=== PATIENT | male | born 1995 | race Caucasian/White ===

== ENCOUNTER 2018-12-13 20:58 | Emergency (ER) | payer MEDICAID ==
[~2018-12-13] VITALS: Wt 52.7 kg
[2018-12-13 21:13] VITALS: BP 154/67; PULSE 90; RESP 20
[2018-12-13] MEDS ORDERED: CLINDAMYCIN 300 MG INJ IM ONE (23:00)
[2018-12-13] MEDS ORDERED: ACETAMINOPHEN 325 MG TAB PO ONE (23:00)
[2018-12-13] MEDS ORDERED: IBUP-1561 PO (23:29)
[2018-12-13] MEDS ORDERED: ACET-141 PO (23:29)
--- NOTE | 2018-12-13 23:34 | ERD ---
ER Documentation Chief Complaint Chief Complaint swelling/pain left jaw, had root canal yesterday. on atb HPI 23-year-old male no significant past medical history presents for left lower jaw pain status post root canal done yesterday. He states that he went back to the clinic due to swelling today and was given clindamycin. He took 1 dose. He states that he thought that the swelling was worsening and called his dental clinic in the dental clinic told him to go to the ER. He has tenderness same pain initially however he states that he has only 2 out of 10 pain currently. The pain is described as a burning sensation. Denies fevers or chills. Denies nausea or vomiting. Otherwise no other modifying factors noted, no other treatments tried at home. ROS All systems reviewed and are negative except as per history of present illness. Medications Home Meds Active Scripts Ibuprofen* (Motrin*) 400 Mg Tab, 400 MG PO Q6H PRN for PAIN, #30 TAB Prov:EDGARDO SCHULTZ DO 12/13/18 Acetaminophen* (Acetaminophen*) 500 MG Extra Strength Tablet, 500 MG PO Q4H PRN for PAIN AND OR ELEVATED TEMP, #30 TAB Prov:EDGARDO SCHULTZ DO 12/13/18 Allergies Allergies: Coded Allergies: No Known Drug Allergies (Verified Allergy, Unknown, 12/13/18) PMhx/Soc Hx Miscellaneous Medical Probl: Yes (ROOT CANAL 12/12/18) Hx Alcohol Use: No Hx Substance Use: No Hx Tobacco Use: No Smoking Status: Never smoker Physical Exam Vitals Vital Signs Date Temp Pulse Resp B/P (MAP) Pulse Ox O2 O2 Flow FiO2 Time Delivery Rate 12/13/18 101.6 90 20 154/67 98 21:13 (96) Physical Exam Const: No acute distress Head: Atraumatic Eyes: Normal Conjunctiva ENT: Normal External Ears, Nose, there is swelling noted over the left lower jaw, no underlying fluctuance noted to palpation Neck: Full range of motion. No meningismus, no neck swelling noted Resp: Clear to auscultation bilaterally Cardio: Regular rate and rhythm, no murmurs Skin: No petechiae or rashes Ext: No cyanosis, or edema Neur: Awake and alert Psych: Normal Mood and Affect Results 24 hrs Current Medications Medications Dose Sig/Nicolás Start Time Status Last (Trade) Ordered Route PRN Stop Time Admin Dose Reason Admin Clindamycin 300 mg ONCE ONCE 12/13/18 DC 12/13/18 Phosphate IM 23:00 12/13/18 22:59 (Cleocin) 23:01 650 mg ONCE ONCE 12/13/18 DC 12/13/18 Acetaminophen PO 23:00 12/13/18 22:59 (Tylenol 23:01 Tab) Procedures/MDM Medical Decision Making: Differential diagnosis includes but not limited to gum inflammation, cellulitis, abscess, allergic reaction Patient appeared well on physical exam. Patient speaking full sentences, there is no shortness of breath. Palpation of the left lower jaw revealed no fluctuance. There is low suspicion for an abscess. Patient is however currently on clindamycin per dentist and advised to continue with the medication. ED course: Patient was given clindamycin IM Symptoms improved with treatment. Prescription(s): Patient given prescription for supportive medication(s). Patient advised to follow up with PCP in 1-2 days. Patient advised to follow-up with dentist. Patient advised to return to ED for new or worsening symptoms. Patient stable on discharge from the ED. Disclaimer: Inadvertent spelling and grammatical errors are likely due to E HR/dictation software use and do not reflect on the overall quality of patient care. Also, please note that the electronic time recorded on this note does not necessarily reflect the actual time of the patient encounter. Departure Diagnosis: Primary Impression: Jaw pain Condition: Fair Patient Instructions: Understanding Root Canal: Overview Referrals: [facility] YOU HAVE RECEIVED A MEDICAL SCREENING EXAM AND THE RESULTS INDICATE THAT YOU DO NOT HAVE A CONDITION THAT REQUIRES URGENT TREATMENT IN THE EMERGENCY DEPARTMENT. FURTHER EVALUATION AND TREATMENT OF YOUR CONDITION CAN WAIT UNTIL YOU ARE SEEN IN YOUR DOCTORS OFFICE WITHIN THE NEXT 1-2 DAYS. IT IS YOUR RESPONSIBILITY TO MAKE AN APPOINTMENT FOR FOLOW-UP CARE. IF YOU HAVE A PRIMARY DOCTOR --you should call your primary doctor and schedule an appointment IF YOU DO NOT HAVE A PRIMARY DOCTOR YOU CAN CALL OUR PHYSICIAN REFERRAL HOTLINE AT IF YOU CAN NOT AFFORD TO SEE A PHYSICIAN YOU CAN CHOSE FROM THE FOLLOWING [facility] [address] [facility] [address] [place] [facility] [place] [address] [facility] [address] [facility]. [facility] [address] [facility]. [facility]. [address] Additional Instructions: Call your primary care doctor TOMORROW for an appointment during the next 1-2 days.See the doctor sooner or return here if your condition worsens before your appointment time. EDGARDO SCHULTZ DO December 13, 2018 23:34
== END 2018-12-13 23:39 | disposition home or self-care (01) ==
LOC: FTE 20:58
DX: R68.84 Jaw pain (principal)
CPT/HCPCS: 96372; Z7502; Z7610

== ENCOUNTER 2019-02-06 20:28 | Emergency (ER) | payer MEDICAID ==
[~2019-02-06] VITALS: Ht 170.2 cm; Wt 51.9 kg
[~2019-02-06 20:28] MED LIST: ACET-141 PO; IBUP-1561 PO
[2019-02-06 20:32] VITALS: Ht 170.2 cm; Wt 51.9 kg
[2019-02-06] MEDS ORDERED: KETOROLAC 30 MG INJ IM STA (22:16)
[2019-02-06] MEDS ORDERED: DIPHTH/TET/ACEL PERTUSS (ADULT) 0.5 ML VIAL IM* ONE (22:30)
[2019-02-06] MEDS ORDERED: LIDOCAINE 1% (MDV) 20 ML INJ SC ONE (22:30)
[2019-02-06] MEDS ORDERED: AMOX1TAB10 PO (22:38)
[2019-02-06] MEDS ORDERED: IBUP-1542 PO (22:38)
--- NOTE | 2019-02-06 22:42 | ERD ---
ER Documentation Chief Complaint Chief Complaint dog bite on LLE at 1999 HPI 23-year-old male presented to ED for a dog bite that happened to his left leg patient states he was walking in a lady was walking her dog on a leash and the dog bit him. Patient states the dog barely got him and that he is an some pain and he wants to come get checked out. Patient denies any allergies to medications. Patient denies any past medical history. Patient does not remember when his last tetanus shot was ROS All systems reviewed and are negative except as per history of present illness. Medications Home Meds Active Scripts Ibuprofen* (Motrin*) 600 Mg Tab, 600 MG PO Q6, #30 TAB Prov:LEEANN ALMAGUER PA-C 02/06/19 Amoxicillin/Potassium Clav (Amox-Clav 875-125 mg Tablet) 875-125 mg Tab, 1 TAB PO BID for 7 Days, #14 TAB Prov:LEEANN ALMAGUER PA-C 02/06/19 Ibuprofen* (Motrin*) 400 Mg Tab, 400 MG PO Q6H PRN for PAIN, #30 TAB Prov:EDGARDO SCHULTZ DO 12/13/18 Acetaminophen* (Acetaminophen*) 500 MG Extra Strength Tablet, 500 MG PO Q4H PRN for PAIN AND OR ELEVATED TEMP, #30 TAB Prov:EDGARDO SCHULTZ DO 12/13/18 Allergies Allergies: Coded Allergies: No Known Drug Allergies (Verified Allergy, Unknown, 12/13/18) PMhx/Soc Medical and Surgical Hx: pt denies Medical Hx, pt denies Surgical Hx Hx Miscellaneous Medical Probl: Yes (ROOT CANAL 12/12/18) Hx Alcohol Use: No Hx Substance Use: No Hx Tobacco Use: No Smoking Status: Never smoker FmHx Family History: No diabetes, No coronary disease, No other Physical Exam Vitals Vital Signs Date Temp Pulse Resp B/P (MAP) Pulse Ox O2 O2 Flow FiO2 Time Delivery Rate 02/06/19 98.3 80 16 139/78 100 20:32 (98) Physical Exam Const: No acute distress Head: Atraumatic Eyes: Normal Conjunctiva ENT: Normal External Ears, Nose and Mouth. Neck: Full range of motion. No meningismus. Resp: Clear to auscultation bilaterally Cardio: Regular rate and rhythm, no murmurs Abd: Soft, non tender, non distended. Normal bowel sounds Skin: No petechiae or rashes Back: No midline or flank tenderness Ext: 2 cm lesion on left hamstring, small puncture wound only involving superficial dermis Results 24 hrs Current Medications Medications Dose Sig/Nicolás Start Time Status Last (Trade) Ordered Route PRN Stop Time Admin Dose Reason Admin Ketorolac 30 mg ONCE STAT 02/06/19 DC 02/06/19 Tromethamine IM 22:16 22:33 (Toradol) 02/06/19 22:17 Diphtheria/ 0.5 ml ONCE ONCE 02/06/19 DC 02/06/19 Tetanus/Acell IM* 22:30 22:34 Pertussis 02/06/19 22:31 (Adacel) Lidocaine 20 ml ONCE ONCE 02/06/19 Cancel (Xylocaine SC 22:30 1% (Mdv) 20 02/06/19 22:31 ml) Procedures/MDM ED course: Tdap Toradol The patient was stable throughout the ED course. The patient and/or family informed of laboratory and diagnostic imaging results throughout the ED course. Medications given in ER: Toradol Patient tolerated medication well with no adverse reactions. Patient reported improvement in pain. Medical decision making: Patient is 23-year-old male presenting to the ED for a dog bite that happened to his left leg. Physical exam showed a small abrasion to his hamstring with a small puncture wound that is only superficial. Patient does not know when his last tetanus shot was. Patient was given a tetanus shot and Toradol for pain. The physician assistant primary care of the dog is here in the ED and states that her dog is up-to-date on vaccinations and lives in their home and has never had any health concerns. At this time I have low suspicion for compartment syndrome, fracture, osteomyelitis, neurovascular injury, rabies. Patient is being sent home with a prescription for Augmentin and ibuprofen. Patient was advised if symptoms worsen return to ER immediately. Patient was advised that he should follow-up with his primary care provider this week regarding this visit. Patient had no further questions upon discharge on reevaluation seems to be doing much better. All questions were answered upon discharge Prescription for home: Augmentin Ibuprofen Discharge: At this time, patient is stable for discharge and outpatient management. I have instructed the patient to follow-up with his\her primary care physician in 1 to 2 days. I have discussed with the patient the possibility of needing to see a specialist for further work-up and imaging studies if symptoms persist. I have instructed the patient to promptly return to the ER for any new or worsening symptoms including increased pain, fever, nausea, vomiting, weakness or LOC. The patient and\or family expressed understanding of and agreement with this plan. All questions were answered. Home care instructions were provided. Disclaimer: Inadvertent spelling and grammatical errors are likely due to EHR\dictation software use and do not reflect on the overall quality of patient care. Also, please note that the electronic time recorded on the note does not necessarily reflect the actual time of the patient encounter. Departure Diagnosis: Primary Impression: Bite by animal Condition: Stable Patient Instructions: Animal Bite, General Referrals: [facility] YOU HAVE RECEIVED A MEDICAL SCREENING EXAM AND THE RESULTS INDICATE THAT YOU DO NOT HAVE A CONDITION THAT REQUIRES URGENT TREATMENT IN THE EMERGENCY DEPARTMENT. FURTHER EVALUATION AND TREATMENT OF YOUR CONDITION CAN WAIT UNTIL YOU ARE SEEN IN YOUR DOCTORS OFFICE WITHIN THE NEXT 1-2 DAYS. IT IS YOUR RESPONSIBILITY TO MAKE AN APPOINTMENT FOR FOLOW-UP CARE. IF YOU HAVE A PRIMARY DOCTOR --you should call your primary doctor and schedule an appointment IF YOU DO NOT HAVE A PRIMARY DOCTOR YOU CAN CALL OUR PHYSICIAN REFERRAL HOTLINE AT IF YOU CAN NOT AFFORD TO SEE A PHYSICIAN YOU CAN CHOSE FROM THE FOLLOWING [facility] [address] [facility]. [facility] [address] [facility] [facility] [address] [facility] [address] [facility] [address] [facility]. [facility]. [address] [facility]. [facility] YOU HAVE RECEIVED A MEDICAL SCREENING EXAM AND THE RESULTS INDICATE THAT YOU DO NOT HAVE A CONDITION THAT REQUIRES URGENT TREATMENT IN THE EMERGENCY DEPARTMENT. FURTHER EVALUATION AND TREATMENT OF YOUR CONDITION CAN WAIT UNTIL YOU ARE SEEN IN YOUR DOCTORS OFFICE WITHIN THE NEXT 1-2 DAYS. IT IS YOUR RESPONSIBILITY TO MAKE AN APPOINTMENT FOR FOLOW-UP CARE. IF YOU HAVE A PRIMARY DOCTOR --you should call your primary doctor and schedule and appointment IF YOU DO NOT HAVE A PRIMARY DOCTOR YOU CAN CALL OUR PHYSICIAN REFERRAL HOTLINE AT . IF YOU CAN NOT AFFORD TO SEE A PHYSICIAN YOU CAN CHOSE FROM THE FOLLOWING [facility] INSTITUTIONS: [facility] [address] [place] [address] [facility] [address] [place] [address] [facility] [address] [place] [address] Additional Instructions: Call your primary care doctor TOMORROW for an appointment during the next 2-3 days.See the doctor sooner or return here if your condition worsens before your appointment time.Follow up in 2 days in your clinic for wound check. LEEANN ALMAGUER PA-C Feb 06, 2019 22:42
[2019-02-06 23:04] VITALS: BP 128/80; PULSE 74; RESP 16
== END 2019-02-06 23:04 | disposition home or self-care (01) ==
LOC: FTE 20:28
DX: S81.852A Open bite, left lower leg, initial encounter (principal); W54.0XXA Bitten by dog, initial encounter; Y92.9 Unspecified place or not applicable; Z23 Encounter for immunization
CPT/HCPCS: 90471; 90715; 96372; J1885; Z7502